=== PATIENT | male | born 1965 | race African-American/Black ===

== ENCOUNTER 2017-06-11 08:10 | Emergency (ER) | payer SELFPAY ==
[~2017-06-11] VITALS: Ht 175.3 cm; Wt 76.0 kg
[2017-06-11 08:14] VITALS: BP 149/85
== END 2017-06-11 08:53 | disposition left against medical advice (07) ==
LOC: ER 08:15
DX: Z53.21 Procedure and treatment not carried out due to patient leaving prior to being seen by health care provider (principal)
CPT/HCPCS: 73130

== ENCOUNTER 2022-08-24 07:50 | Inpatient (IN) | payer MEDICAID, OTHER ==
[~2022-08-24] VITALS: Ht 182.9 cm; Wt 92.5 kg
[2022-08-24] VITALS (15 sets, daily range): BP systolic 109–149; BP diastolic 65–92
[2022-08-24] MEDS ORDERED: LEVETIRACETAM 1000MG PREMIX 100 ML IV ONE (08:15)
[2022-08-24] MEDS ORDERED: LORAZEPAM 2MG/ML CPJ IV ONE (08:15)
[2022-08-24] MEDS ORDERED: PROPOFOL 10MG/ML 100ML 100 ML IV STA (08:18)
[2022-08-24] MEDS ORDERED: SUCCINYLCHOLINE CHLORIDE 200MG/10ML IV ONE (08:30)
[2022-08-24] MEDS ORDERED: MIDAZOLAM HCL 100 MG in DEXT 5% WATER 80 ML IV ONE (08:30)
[2022-08-24] MEDS ORDERED: FENTANYL CITRATE/PF 50MCG/ML 2ML VIAL IV PRN (08:30)
[2022-08-24] MEDS ORDERED: ETOMIDATE 2MG/ML 10ML VIAL IV ONE (08:30)
[2022-08-24] MEDS ORDERED: MIDAZOLAM HCL 100 MG in SODIUM CHLORIDE 0.9% 100 ML IV NR (08:45)
[2022-08-24 09:04] LABS: BASOPHILS % 0.1 % (0.0-2.0); HEMATOCRIT. 42.3 % (42.0-52.0); HEMOGLOBIN. 13.9 g/dL (14.0-18.0); LYMPHOCYTES % 8.5 % (20.0-50.0); MEAN CORPUSCULAR VOLUME 88.3 fL (80.0-94.0); MEAN PLATELET VOLUME 8.7 fl (7.4-10.4); MONOCYTES % 6.4 % (2.0-8.0); PLATELET 264 x1000/uL (130-400); RED BLOOD CELL COUNT 4.79 mill/uL (4.7-6.1); RED CELL DISTRIBUTION WIDTH 14.9 % (11.6-14.6)
[2022-08-24 09:11] LABS: CHLORIDE 109 mEq/L (98-107)
[2022-08-24 09:21] LABS: BG BASE EXCESS -3.1 mmol/L (-2.0-2.0); BG DEOXYHEMOGLOBIN 2.9 % (0.0-5.0); BG FRACTION INSPIRED OXYGEN 100; BG METHEMOGLOBIN 0.3 % (0.0-1.5); BG OXYGEN SATURATION 97.1 % (92.0-98.5); BG OXYHEMOGLOBIN 95.8 % (94.0-97.0); BG PCO2 34.6 mmHg (35.0-45.0); BG PO2 97.3 mmHg (75.0-100.0); BG SAMPLE SITE RIGHT BRACHIAL; BG TOTAL HEMOGLOBIN 14.2 g/dL (12.0-18.0); BG VENT MODE VENT - AC
[2022-08-24 09:32] LABS: CREATINE KINASE 1094 IU/L (39-308); ETHANOL BLOOD < 10 mg/dL
[2022-08-24] MEDS ORDERED: AMPICILLIN SOD/SULBACTAM NA 3 G in SODIUM CHLORIDE 0.9% 100 ML IV SCH (09:45)
[2022-08-24 11:52] LABS: CLARITY URINE CLOUDY (CLEAR); COLOR URINE YELLOW (YELLOW); KETONES URINE TRACE (NEGATIVE); LEUKOCYTE ESTERASE URINE NEGATIVE (NEGATIVE); NITRITE URINE NEGATIVE (NEGATIVE); OCCULT BLOOD URINE TRACE (NEGATIVE); PROTEIN URINE 1+ (NEGATIVE); SPECIFIC GRAVITY URINE 1.021 (1.005-1.030); UROBILINOGEN URINE 0.2 E.U./dL (0.2-1.0)
[2022-08-24 12:06] LABS: INR 1.1; PROTHROMBIN TIME 11.7 sec (9.6-11.0)
[2022-08-24] MEDS: PROPOFOL 10MG/ML 100ML 100 ML IV SCH ×2 (12:21→20:52)
[2022-08-24] MEDS ORDERED: ACETAMINOPHEN 325MG TABLET PO PRN (12:30)
[2022-08-24] MEDS ORDERED: MAGNESIUM/ALUMINUM HYDROXIDE/SIMETHICONE 30ML UDC PO PRN (12:30)
[2022-08-24] MEDS ORDERED: TRAMADOL 50MG TABLET PO PRN (12:30)
[2022-08-24] MEDS ORDERED: GUAIFENESIN 200MG/10ML SUGAR FREE UDC PO PRN (12:30)
[2022-08-24] MEDS ORDERED: LORAZEPAM 2MG/ML CPJ IV PRN ×2 (12:30→16:30)
[2022-08-24] MEDS ORDERED: DOCUSATE SODIUM 100MG CAPSULE PO PRN (12:30)
[2022-08-24] MEDS ORDERED: ONDANSETRON HCL 4MG/2ML INJ IV PRN (12:30)
[2022-08-24] MEDS: PANTOPRAZOLE SODIUM 40 MG/VIAL IV SCH (12:44)
[2022-08-24] MEDS: DEXT 5%/0.45% NACL 1000ML 1,000 ML IV SCH (12:44)
[2022-08-24] MEDS ORDERED: NALOXONE HCL 0.4MG/ML VIAL IV PRN (12:45)
[2022-08-24] MEDS: ENOXAPARIN 40MG/0.4ML SYR SUBCUT SCH (12:45)
[2022-08-24] MEDS ORDERED: MIDAZOLAM 100MG/100ML PMX 100 ML IV PRN (13:30)
[2022-08-24] MEDS ORDERED: CEFTRIAXONE 1 G PREMIX 50 ML IV NR (13:30)
[2022-08-24 13:34] LABS: *AMPHETAMINES SCREEN URINE NEGATIVE (NEGATIVE); *BARBITURATES SCREEN URINE NEGATIVE (NEGATIVE); *BENZODIAZEPINES SCREEN URINE PRESUMTIVE POSITIVE (NEGATIVE); *COCAINE SCREEN URINE NEGATIVE (NEGATIVE); CANNABINOID URINE SCREEN NEGATIVE (NEGATIVE); METHADONE URINE SCREEN NEGATIVE (NEGATIVE); OPIATES URINE SCREEN NEGATIVE (NEGATIVE); PHENCYCLIDINE URINE SCREEN NEGATIVE (NEGATIVE)
[2022-08-24] MEDS: FENTANYL 2500MCG/250ML PMX 250 ML IV NR (13:52)
[2022-08-24] MEDS: METRONIDAZOLE 500MG TABLET PO SCH ×2 (14:00→21:59)
[2022-08-24 14:24] LABS: BG BASE EXCESS -1.2 mmol/L (-2.0-2.0); BG CARBOXYHEMOGLOBIN 0.3 % (0.5-1.5); BG DEOXYHEMOGLOBIN 1.4 % (0.0-5.0); BG FRACTION INSPIRED OXYGEN 100; BG HCO3 ACT 22.9 mmol/L (22.0-26.0); BG METHEMOGLOBIN 0.3 % (0.0-1.5); BG OXYGEN SATURATION 98.6 % (92.0-98.5); BG PCO2 36.5 mmHg (35.0-45.0); BG PH 7.415 (7.350-7.450); BG PO2 133.1 mmHg (75.0-100.0); BG SAMPLE SITE RIGHT BRACHIAL; BG TOTAL HEMOGLOBIN 13.4 g/dL (12.0-18.0); BG VENT MODE VENT - AC
[2022-08-24] MEDS: PROPOFOL 10MG/ML 100ML 100 ML IV PRN (20:52)
[2022-08-24] MEDS ORDERED: LEVETIRACETAM 500MG/5ML CUP PO SCH (21:00)
[2022-08-25] VITALS (49 sets, daily range): BP systolic 118–170; BP diastolic 72–103
[2022-08-25] MEDS: PROPOFOL 10MG/ML 100ML 100 ML IV SCH ×2 (00:40→12:36)
[2022-08-25] MEDS: PROPOFOL 10MG/ML 100ML 100 ML IV PRN ×2 (00:50→07:09)
[2022-08-25] MEDS: MIDAZOLAM HCL 100 MG in SODIUM CHLORIDE 0.9% 100 ML IV PRN ×2 (02:30→23:11)
[2022-08-25] MEDS: DEXT 5%/0.45% NACL 1000ML 1,000 ML IV SCH ×2 (02:33→18:54)
[2022-08-25] MEDS: METRONIDAZOLE 500MG TABLET PO SCH ×3 (06:12→23:09)
[2022-08-25 06:56] LABS: BASOPHILS % 0.4 % (0.0-2.0); EOSINOPHILS % 0.2 % (0.0-5.0); HEMATOCRIT. 34.8 % (42.0-52.0); HEMOGLOBIN. 11.8 g/dL (14.0-18.0); LYMPHOCYTES % 15.1 % (20.0-50.0); MEAN CORPUSCULAR HEMOGLOBIN 29.3 pg (28.0-32.0); MEAN CORPUSCULAR VOLUME 86.7 fL (80.0-94.0); MEAN PLATELET VOLUME 9.1 fl (7.4-10.4); MONOCYTES % 7.8 % (2.0-8.0); NEUTROPHILS % 76.5 % (40.0-76.0); PLATELET 210 x1000/uL (130-400); RED BLOOD CELL COUNT 4.01 mill/uL (4.7-6.1); RED CELL DISTRIBUTION WIDTH 14.7 % (11.6-14.6)
[2022-08-25 07:07] LABS: CHLORIDE 112 mEq/L (98-107)
[2022-08-25 07:14] LABS: HDL CHOLESTEROL 44 mg/dL (40-59); LDL CHOLESTEROL 126 mg/dL (5-100)
[2022-08-25 08:35] LABS: BG BASE EXCESS -1.7 mmol/L (-2.0-2.0); BG CARBOXYHEMOGLOBIN 0.3 % (0.5-1.5); BG DEOXYHEMOGLOBIN 1.1 % (0.0-5.0); BG FRACTION INSPIRED OXYGEN 80; BG HCO3 ACT 22.1 mmol/L (22.0-26.0); BG METHEMOGLOBIN 0.3 % (0.0-1.5); BG OXYGEN SATURATION 98.9 % (92.0-98.5); BG OXYHEMOGLOBIN 98.3 % (94.0-97.0); BG PCO2 34.5 mmHg (35.0-45.0); BG PH 7.425 (7.350-7.450); BG PO2 159.6 mmHg (75.0-100.0); BG SAMPLE SITE RIGHT RADIAL; BG TOTAL HEMOGLOBIN 12.9 g/dL (12.0-18.0); BG VENT MODE VENT - AC
[2022-08-25] MEDS ORDERED: PROPOFOL 10MG/ML 100ML 100 ML IV PRN (09:00)
[2022-08-25] MEDS: PANTOPRAZOLE SODIUM 40 MG/VIAL IV SCH (09:10)
[2022-08-25] MEDS: LEVETIRACETAM 500MG/5ML CUP PO SCH ×2 (09:10→23:55)
[2022-08-25] MEDS: AMLODIPINE 10MG TABLET PO SCH (09:25)
[2022-08-25] MEDS ORDERED: IPRATROPIUM/ALBUTEROL 0.5-3(2.5)MG/3ML NEB HHN PRN (11:00)
[2022-08-25] MEDS: ENOXAPARIN 40MG/0.4ML SYR SUBCUT SCH (13:00)
[2022-08-25] MEDS ORDERED: QUET25TA36 PO (13:59)
[2022-08-25] MEDS ORDERED: AMLO5TAB88 PO (13:59)
[2022-08-25] MEDS ORDERED: LEVE1000 PO (13:59)
[2022-08-25] MEDS ORDERED: SERT50TA MT (13:59)
[2022-08-25] MEDS ORDERED: DIVA500T3 MT (13:59)
[2022-08-25] MEDS ORDERED: SERT50TA PO (13:59)
[2022-08-25] MEDS ORDERED: LISI10TA26 MT (13:59)
[2022-08-25] MEDS: CEFTRIAXONE 1,000 MG in DEXTROSE 5% WATER 50 ML IV SCH (14:03)
[2022-08-25] MEDS: IPRATROPIUM/ALBUTEROL 0.5-3(2.5)MG/3ML NEB HHN SCH ×2 (15:03→20:25)
[2022-08-25] MEDS: ACETYLCYSTEINE 100MG/ML 10% VIAL 4ML INH SCH (15:03)
[2022-08-25] MEDS ORDERED: FENTANYL 2500MCG/250ML PMX 250 ML IV ONE (18:30)
[2022-08-25] MEDS: FENTANYL 2500MCG/250ML PMX 250 ML IV NR (18:56)
[2022-08-26] VITALS (60 sets, daily range): BP systolic 105–182; BP diastolic 65–107
[2022-08-26] MEDS: INSULIN LISPRO 100 UNITS/ML SUBCUT SCH ×4 (00:15→18:15)
[2022-08-26] MEDS ORDERED: DEXTROSE 50% WATER 50ML SYRINGE IV PRN (00:15)
[2022-08-26] MEDS: IPRATROPIUM/ALBUTEROL 0.5-3(2.5)MG/3ML NEB HHN SCH ×4 (02:26→20:28)
[2022-08-26] MEDS: ACETYLCYSTEINE 100MG/ML 10% VIAL 4ML INH SCH ×2 (02:27→06:00)
[2022-08-26] MEDS: DEXT 5%/0.45% NACL 1000ML 1,000 ML IV SCH ×2 (04:42→18:47)
[2022-08-26 06:40] LABS: BASOPHILS % 0.1 % (0.0-2.0); EOSINOPHILS % 0.4 % (0.0-5.0); HEMATOCRIT. 34.9 % (42.0-52.0); HEMOGLOBIN. 11.7 g/dL (14.0-18.0); LYMPHOCYTES % 14.8 % (20.0-50.0); MEAN CORPUSCULAR HEMOGLOBIN 29.4 pg (28.0-32.0); MEAN CORPUSCULAR VOLUME 88.2 fL (80.0-94.0); MEAN PLATELET VOLUME 8.8 fl (7.4-10.4); MONOCYTES % 11.8 % (2.0-8.0); NEUTROPHILS % 72.9 % (40.0-76.0); PLATELET 197 x1000/uL (130-400); RED BLOOD CELL COUNT 3.96 mill/uL (4.7-6.1); RED CELL DISTRIBUTION WIDTH 14.6 % (11.6-14.6)
[2022-08-26 06:46] LABS: CHLORIDE 112 mEq/L (98-107)
[2022-08-26] MEDS: BLOOD SUGAR DIAGNOSTIC STRIP TEST SCH ×3 (06:54→18:18)
[2022-08-26] MEDS: METRONIDAZOLE 500MG TABLET PO SCH ×3 (06:55→22:15)
[2022-08-26] MEDS: LEVETIRACETAM 500MG/5ML CUP PO SCH ×2 (08:53→20:47)
[2022-08-26] MEDS: PANTOPRAZOLE SODIUM 40 MG/VIAL IV SCH (08:53)
[2022-08-26] MEDS: AMLODIPINE 10MG TABLET PO SCH (08:53)
[2022-08-26 09:24] LABS: BG BASE EXCESS 1.5 mmol/L (-2.0-2.0); BG CARBOXYHEMOGLOBIN 0.4 % (0.5-1.5); BG DEOXYHEMOGLOBIN 5.2 % (0.0-5.0); BG FRACTION INSPIRED OXYGEN 40; BG HCO3 ACT 26.6 mmol/L (22.0-26.0); BG METHEMOGLOBIN 0.7 % (0.0-1.5); BG OXYGEN SATURATION 94.7 % (92.0-98.5); BG OXYHEMOGLOBIN 93.7 % (94.0-97.0); BG PCO2 44.1 mmHg (35.0-45.0); BG PH 7.399 (7.350-7.450); BG PO2 75.1 mmHg (75.0-100.0); BG SAMPLE SITE RIGHT RADIAL; BG TOTAL HEMOGLOBIN 12.6 g/dL (12.0-18.0); BG VENT MODE VENT - AC
[2022-08-26 11:16] LABS: BG CARBOXYHEMOGLOBIN 0.9 % (0.5-1.5); BG DEOXYHEMOGLOBIN 4.9 % (0.0-5.0); BG FRACTION INSPIRED OXYGEN 40; BG HCO3 ACT 27.5 mmol/L (22.0-26.0); BG METHEMOGLOBIN 0.2 % (0.0-1.5); BG PCO2 46.4 mmHg (35.0-45.0); BG PO2 74.5 mmHg (75.0-100.0); BG SAMPLE SITE RIGHT RADIAL; BG TOTAL HEMOGLOBIN 12.7 g/dL (12.0-18.0); BG VENT MODE VENT - CPAP
[2022-08-26] MEDS: CEFTRIAXONE 1,000 MG in DEXTROSE 5% WATER 50 ML IV SCH (13:38)
[2022-08-26] MEDS: ENOXAPARIN 40MG/0.4ML SYR SUBCUT SCH (13:39)
[2022-08-26] MEDS: LORAZEPAM 2MG/ML CPJ IV PRN (20:46)
[2022-08-27] VITALS (38 sets, daily range): BP systolic 90–190; BP diastolic 21–117
[2022-08-27] MEDS: ACETYLCYSTEINE 100MG/ML 10% VIAL 4ML INH SCH ×2 (01:43→15:00)
[2022-08-27] MEDS: IPRATROPIUM/ALBUTEROL 0.5-3(2.5)MG/3ML NEB HHN SCH ×4 (01:43→20:00)
[2022-08-27] MEDS: BLOOD SUGAR DIAGNOSTIC STRIP TEST SCH ×4 (06:00→17:35)
[2022-08-27] MEDS: INSULIN LISPRO 100 UNITS/ML SUBCUT SCH ×3 (06:00→17:35)
[2022-08-27] MEDS: METRONIDAZOLE 500MG TABLET PO SCH ×3 (06:11→20:22)
[2022-08-27] MEDS: DEXT 5%/0.45% NACL 1000ML 1,000 ML IV SCH ×2 (07:54→20:21)
[2022-08-27] MEDS: PANTOPRAZOLE SODIUM 40 MG/VIAL IV SCH (09:07)
[2022-08-27] MEDS: AMLODIPINE 10MG TABLET PO SCH (09:08)
[2022-08-27] MEDS: LEVETIRACETAM 500MG/5ML CUP PO SCH ×2 (09:08→20:15)
[2022-08-27] MEDS: SODIUM CHLORIDE 3% FOR INH 4ML UD NEB INH SCH ×2 (09:48→14:31)
[2022-08-27] MEDS: ENOXAPARIN 40MG/0.4ML SYR SUBCUT SCH (13:29)
[2022-08-27] MEDS: CEFTRIAXONE 1,000 MG in DEXTROSE 5% WATER 50 ML IV SCH (14:09)
[2022-08-27] MEDS: LORAZEPAM 2MG/ML CPJ IV PRN (21:43)
[2022-08-28] VITALS (17 sets, daily range): BP systolic 123–156; BP diastolic 57–94
[2022-08-28] MEDS: ACETYLCYSTEINE 100MG/ML 10% VIAL 4ML INH SCH ×2 (00:32→08:22)
[2022-08-28] MEDS: IPRATROPIUM/ALBUTEROL 0.5-3(2.5)MG/3ML NEB HHN SCH ×4 (00:32→21:30)
[2022-08-28] MEDS: METRONIDAZOLE 500MG TABLET PO SCH ×3 (06:00→21:24)
[2022-08-28] MEDS: INSULIN LISPRO 100 UNITS/ML SUBCUT SCH ×4 (08:00→21:00)
[2022-08-28] MEDS: BLOOD SUGAR DIAGNOSTIC STRIP TEST SCH ×4 (08:54→21:24)
[2022-08-28] MEDS: LEVETIRACETAM 500MG/5ML CUP PO SCH ×2 (09:23→21:24)
[2022-08-28] MEDS: AMLODIPINE 10MG TABLET PO SCH (09:23)
[2022-08-28] MEDS: PANTOPRAZOLE SODIUM 40 MG/VIAL IV SCH (09:23)
[2022-08-28] MEDS: DEXT 5%/0.45% NACL 1000ML 1,000 ML IV SCH ×2 (09:24→23:10)
[2022-08-28] MEDS: ENOXAPARIN 40MG/0.4ML SYR SUBCUT SCH (13:26)
[2022-08-28] MEDS: CEFTRIAXONE 1,000 MG in DEXTROSE 5% WATER 50 ML IV SCH (13:26)
[2022-08-29] VITALS: BP 159/74
[2022-08-29] MEDS: ACETYLCYSTEINE 100MG/ML 10% VIAL 4ML INH SCH ×2 (01:12→09:47)
[2022-08-29] MEDS: IPRATROPIUM/ALBUTEROL 0.5-3(2.5)MG/3ML NEB HHN SCH ×2 (01:12→09:48)
[2022-08-29 04:00] VITALS: BP 153/71
[2022-08-29] MEDS: METRONIDAZOLE 500MG TABLET PO SCH (05:39)
[2022-08-29] MEDS: INSULIN LISPRO 100 UNITS/ML SUBCUT SCH (07:40)
[2022-08-29] MEDS: BLOOD SUGAR DIAGNOSTIC STRIP TEST SCH (07:53)
[2022-08-29 08:00] VITALS: BP 152/88
[2022-08-29] MEDS: AMLODIPINE 10MG TABLET PO SCH (09:13)
[2022-08-29] MEDS: PANTOPRAZOLE SODIUM 40 MG/VIAL IV SCH (09:13)
[2022-08-29] MEDS: LEVETIRACETAM 500MG/5ML CUP PO SCH (09:13)
[2022-08-29 10:31] VITALS: BP 152/88
== END 2022-08-29 11:10 | disposition home or self-care (01) | DRG 53 ==
LOC: ER 07:50 → CVICU 10:47 → EDBEDREQTM 10:51 → EDBEDREQ 10:51 → EDBEDREQSVC 11:06 → 7WST 08-28 15:12
PROVIDERS: ADMIT Hospitalist; ATTEND Hospitalist
PROC: 5A1945Z Respiratory Ventilation, 24-96 Consecutive Hours (ICD-10-PCS; principal; 2022-08-24)
PROC: 0BH17EZ Insertion of Endotracheal Airway into Trachea, Via Natural or Artificial Opening (ICD-10-PCS; 2022-08-24)
PROC: 4A00X4Z Measurement of Central Nervous Electrical Activity, External Approach (ICD-10-PCS; 2022-08-25)
DX: G40.901 Epilepsy, unspecified, not intractable, with status epilepticus (principal); J96.01 Acute respiratory failure with hypoxia; J69.0 Pneumonitis due to inhalation of food and vomit; N17.9 Acute kidney failure, unspecified; Z20.822 Contact with and (suspected) exposure to COVID-19; N18.9 Chronic kidney disease, unspecified; D72.829 Elevated white blood cell count, unspecified; Z87.820 Personal history of traumatic brain injury
CPT/HCPCS: 31500; 36415; 36600; 71045; 80048; 80053; 80061; 80305; 80320; 81003; 82375; 82550; 82805; 82962; 84478; 84484; 85025; 87070; 87426; 93005; 93970; 94002; 94003; 94640; 95816; 99291; C9113; C9803; J0295; J0696; J1650; J1815; J1953; J2060; J2250; J2704; J3010; J7050; J7060; J7608; G0480